=== PATIENT | male | born 1930 | race Caucasian/White ===

== ENCOUNTER → 2017-01-15 | Outpatient (CLI) | payer MEDICARE, OTHER ==
--- NOTE | 2017-01-16 07:54 | RAD ---
Pelvis one view INDICATION: Hip pain IMPRESSION: Mild osteoarthrosis of the hips. Bones are osteopenic. No evidence of fracture or focal destructive lesion. Scattered osteoarthritic changes of the sacroiliac joints. Electronically signed by: Mark Contreras MD 01/16/2017 7:55 AM CDT
--- NOTE | 2017-01-16 07:54 | RAD ---
EXAM DESCRIPTION: Right knee, 4 views CLINICAL HISTORY: KNEE PAIN FINDINGS/ IMPRESSION: Comparison 10/14/2016 Region of lucency medial tibia plateau seen on the prior study. This involves an area spanning roughly 2 x 1.[address] to assess for etiology No fracture. No periprosthetic fracture or osteolysis femoral component. No fracture of the patella. Moderate suprapatellar joint effusion Electronically signed by: Andre Hawk MD 01/16/2017 7:54 AM CDT
== END ==
LOC: RAD 08:00
PROVIDERS: ATTEND Orthopaedic Surgery
DX: M25.561 Pain in right knee (principal); M16.0 Bilateral primary osteoarthritis of hip; M85.88 Other specified disorders of bone density and structure, other site; M25.551 Pain in right hip

== ENCOUNTER → 2017-01-21 | Outpatient (CLI) | payer MEDICARE, OTHER | LOC: LAB.O 08:13 | PROVIDERS: ATTEND Orthopaedic Surgery | DX: M17.11 Unilateral primary osteoarthritis, right knee (principal); M25.461 Effusion, right knee ==

== ENCOUNTER → 2017-01-22 | Outpatient (CLI) | payer MEDICARE, OTHER ==
--- NOTE | 2017-01-22 15:02 | NM ---
EXAM DESCRIPTION: Bone Scan, 3Phase CLINICAL HISTORY: 86 years Male, RT KNEE OSTEOARTHRITIS COMPARISON: None. TECHNIQUE: A three phase bone scan with attention to the knees was performed in this patient with right knee osteoarthritis using utilizing 28 mCi of technetium MDP FINDINGS: The flow study is symmetric and normal in appearance. The blood pool image demonstrates a photopenic area in the right knee consistent with the knee replacement. Intense uptake of the isotope on the blood pool imaging to suggest soft tissue infection is not apparent. Delayed imaging demonstrates mildly increased activity involving the left knee in the region of the fibular head that is nonspecific. There is modest activity at the margins of the prosthesis on both the tibial and femoral side of the right knee replacement that intense activity to suggest loosening or osteomyelitis is not apparent. IMPRESSION: 1. Abnormal right knee consistent with total knee replacement with essentially normal flow and blood pool imaging and mildly increased activity at the margins of the prosthesis consistent with normal reactive changes postprostatectomy replacement. 2. A pattern to suggest acute osteomyelitis or infection or a focal area of intense activity to suggest a localized loosening of the prosthesis is not apparent. Electronically signed by: Andre Soni MD 01/22/2017 3:02 PM CDT
== END | disposition home or self-care (01) ==
LOC: NM 07:18
PROVIDERS: ATTEND Orthopaedic Surgery
DX: M17.11 Unilateral primary osteoarthritis, right knee (principal)
CPT/HCPCS: 78315; A9503

== ENCOUNTER → 2017-04-20 | Outpatient (CLI) | payer MEDICARE, OTHER | END | disposition home or self-care (01) | LOC: RESP 09:42 | PROVIDERS: ATTEND Orthopaedic Surgery | DX: Z01.818 Encounter for other preprocedural examination (principal); R30.0 Dysuria ==

== ENCOUNTER 2017-05-01 05:04 | Inpatient (IN) | payer MEDICARE, OTHER ==
--- NOTE | 2017-04-30 15:33 | HP ---
CHIEF COMPLAINT: Right knee pain. HISTORY OF PRESENT ILLNESS: Mr. Paz is an 86 year-old male with a history of total knee replacement done about 7 years ago. Mr. Paz had a relatively uneventful recovery, however, has had some knee pain of late. He has been evaluated for both infection and loosening, however there has been no evidence of either. Evidence on x-ray exists of unequal wearing of the polyethylene. Because of that, I did send them for a second opinion to Dr. Ríos. Dr. Ríos was in agreement that the polyethylene showed advanced wear predominantly along the medial aspect. Because of that and the lack of findings consistent with loosening or infection, we talked about options. At this point, the plan is for polyethylene exchange. We did discuss the risks, benefits, and alternatives to this and more specifically the fact that despite all of his negative labs there still could be issues associated with both loosening or infection. After discussing these things, he has given informed consent for polyethylene exchange and the possibility of having a full revision. PAST SURGICAL HISTORY: 1. Open reduction and internal fixation as above. 2. Rotator cuff repair. 3. Knee replacement. 4. Contralateral rotator cuff repair. CURRENT MEDICATIONS: 1. Fish oil. 2. Saw [place]. 3. Multivitamins. 4. Prilosec. ALLERGIES: NO KNOWN DRUG ALLERGIES. CODE STATUS: FULL CODE. IMMUNIZATIONS: Up to date. FAMILY HISTORY: None pertinent to today's complaints. SOCIAL HISTORY: He does not use illicit drugs or smoke, but he does drink on occasion. REVIEW OF SYSTEMS: Negative except as indicated in the History of Present Illness. PHYSICAL EXAMINATION: VITAL SIGNS: Blood pressure 118/70, pulse 74, weight about 210. MENTAL STATUS: The patient is awake, alert, and is able to give a good history and participate in the physical. The patient is oriented to person, place and time. SKIN: Normal tone and turgor. HEENT: Normocephalic, atraumatic. Pupils equal, round and reactive. Mucosal membranes are moist. NECK: Normal range of motion. No thyromegaly, no lymphadenopathy. CHEST: Normal respiratory excursion. CARDIAC: Regular rate and rhythm. No murmurs, rubs or gallops. MUSCULOSKELETAL: Bilateral upper extremities show full active range of motion without significant pain. He has no deformity. They are warm and well perfused. Strength is 5/5. The left lower extremity shows full range of motion in the hip and knee without significant pain. There is no deformity. There is no instability. Strength is 5/5 and sensation is intact. The right lower extremity shows a well-healed wound anteriorly. He has full range of motion in the hip. He has full extension with flexion to about 120 degrees. Sensation is intact throughout. He has no varus, valgus, anterior or posterior laxity. He has no evidence of instability. He does have diffuse tenderness throughout the knee but no effusion. No erythema. No increased warmth and no soft tissue swelling. ASSESSMENT: 1. Excess polyethylene wear with knee pain. PLAN: The plan at this point is for polyethylene exchange. We have discussed the risks, benefits, and alternatives to that in addition to the fact that there may be more extensive surgical intervention needed at the time of polyethylene exchange. After discussing the risks, benefits, and alternatives to this, he has given informed consent for it. [facility][id number] [facility]
[2017-05-01] MEDS ORDERED: LACTATED RINGERS 1,000 ML ONE (05:35)
[2017-05-01] MEDS ORDERED: SODIUM CHL 0.9% 100ML MINI-BAG 100 ML IVPB ONE (05:35)
[2017-05-01] MEDS ORDERED: VANCOMYCIN HCL INJ 1,000 MG VIAL IVPB ONE ×5 (05:36→19:42)
[2017-05-01] MEDS ORDERED: ceFAZolin SODIUM 1 GM VIAL ONE ×3 (05:36→08:40)
[2017-05-01] MEDS ORDERED: SODIUM CHLORIDE 0.9% 250ML 250 ML ONE ×3 (05:37→19:41)
[2017-05-01] MEDS ORDERED: TRANEXAMIC ACID 1,000 MG/10 ML VIAL ONE ×2 (05:37→05:38)
[2017-05-01] MEDS ORDERED: SODIUM CHLORIDE 0.9% 100ML 100 ML IVPB ONE (05:38)
[2017-05-01] MEDS ORDERED: MIDAZOLAM INJ 5 MG/5 ML VIAL ONE (06:30)
[2017-05-01] MEDS ORDERED: fentaNYL CITRATE INJ 50 MCG/ML AMP ONE (06:30)
[2017-05-01] MEDS ORDERED: MORPHINE SULFATE *EPIDURAL* 0.5 MG/ML VIAL ONE (06:30)
[2017-05-01] MEDS ORDERED: ACETAMINOPHEN IV 1000MG 100 ML ONE (06:30)
[2017-05-01] MEDS ORDERED: DEXAMETHASONE INJ 10 MG/ML VIAL ONE (09:00)
[2017-05-01] MEDS ORDERED: SODIUM CHLORIDE 0.9% 50 ML VIAL ONE (09:00)
[2017-05-01] MEDS ORDERED: PROPOFOL 200 MG/20 ML VIAL IV ONE (09:00)
[2017-05-01] MEDS ORDERED: raNITIdine HCL INJ 25 MG/ML VIAL ONE (09:00)
[2017-05-01] MEDS ORDERED: ePHEDrine SULF 50 MG/ML ONE (09:00)
[2017-05-01] MEDS ORDERED: LIDOCAINE 1% 10 ML VIAL INJ ONE (09:00)
[2017-05-01] MEDS ORDERED: MORPHINE PCA 1 MG/ML 100 ML BAG IVPB ONE (09:10)
[2017-05-01] MEDS ORDERED: MAGNESIUM HYDROXIDE 30 ML UD PO PRN (09:37)
[2017-05-01] MEDS ORDERED: PROMETHAZINE HCL INJ 12.5 MG in SODIUM CHLORIDE 0.9% 50ML 50 ML IVPB PRN (09:37)
[2017-05-01] MEDS ORDERED: BISACODYL SUPPOSITORY 10 MG PR PRN (09:37)
[2017-05-01] MEDS ORDERED: ACETAMINOPHEN 500 MG TAB PO PRN (09:37)
[2017-05-01] MEDS ORDERED: SODIUM CHLORIDE 0.9% (FLUSH) 10 ML SYG IV PRN (09:37)
[2017-05-01] MEDS ORDERED: ALUMINUM & MAGNESIUM HYDROXIDE 30 ML UD PO PRN (09:37)
[2017-05-01] MEDS ORDERED: MORPHINE SULFATE INJ 10 MG/ML VIAL IM PRN (09:37)
[2017-05-01] MEDS ORDERED: CYCLOBENZAPRINE HCL 10 MG TAB PO PRN (09:37)
[2017-05-01] MEDS ORDERED: ZOLPIDEM TARTRATE 5 MG TAB PO PRN (09:37)
[2017-05-01] MEDS ORDERED: BENZOCAINE-MENTH LOZ (CEPACOL) 1 EA LOZ MT PRN (09:37)
[2017-05-01] MEDS ORDERED: TEMAZEPAM 15 MG CAP PO PRN (09:37)
[2017-05-01] MEDS ORDERED: traMADol HCL 50 MG TAB PO PRN (09:37)
[2017-05-01] MEDS ORDERED: MORPHINE SULFATE INJ 10 MG/ML VIAL IV PRN (09:37)
[2017-05-01] MEDS ORDERED: PROMETHAZINE HCL INJ 25 MG in SODIUM CHLORIDE 0.9% 50ML 50 ML IVPB PRN (09:37)
[2017-05-01] MEDS ORDERED: NALOXONE HCL INJ 0.4 MG/ML VIAL IV PRN (09:37)
[2017-05-01] MEDS ORDERED: ACETAMINOPHEN 325 MG TAB PO PRN (09:37)
[2017-05-01] MEDS ORDERED: TRANEXAMIC ACID INJ 1,000 MG in SODIUM CHLORIDE 0.9% 100ML 100 ML IVPB ONE (09:37)
[2017-05-01] MEDS ORDERED: DEX 5% W/NACL 0.45% 1000ML 1,000 ML IVS PRN (09:37)
[2017-05-01] MEDS ORDERED: MORPHINE PCA 1 MG/ML 100ML 1 BAG in PREMIX BAG 1 BAG IVPB SCH (10:00)
--- NOTE | 2017-05-01 10:57 | OP ---
DATE OF PROCEDURE: 05/01/17 PREOPERATIVE DIAGNOSIS: 1. Failed right total knee. POSTOPERATIVE DIAGNOSIS: 1. Failed right total knee. PROCEDURE: 1. Polyethylene exchange. 2. Debridement. SURGEON: Santhosh Tellez MD. BAGGAGE SECURITY CHECKER: Jaden Bledsoe CST, SA-C. ANESTHESIA: General anesthesia. COMPLICATIONS: None. FINDINGS: There was excessive wear on the medial aspect of the polyethylene. There was exuberant scar formation. There was no purulence and very small amount of clear, yellow fluid. That fluid was sent during surgery and there were no white blood cells identified in the fluid. INDICATION: Mr. Paz is an 86-year-old male with a history of knee replacement that was done about 7 years ago. He did relatively well from that initially. He has been slowly developing discomfort and he was fully evaluated for both loosening and infection. There was no evidence of either issue and I did send him for a second opinion. Dr. Jose Ríos was in agreement that he would likely benefit from polyethylene exchange and any other decisions could be made intraoperatively if there was evidence of infection or loosening on gross examination. After discussing the risks, benefits and alternatives to operative therapy with him, informed consent was obtained. PROCEDURE: The patient was brought to the Operating Room land placed in the supine position. General anesthesia was induced and the patient's leg was sterilely prepped and draped. Following prepping and draping, an incision was made in line with his previous incision. Standard medial parapatellar approach was used and all the remaining old suture was removed. Following that, pretty extensive resection of scar tissue and synovium was removed. There were synovial tissue samples sent for evaluation in pathology. Once extensive scar removal had been performed, the knee was hyperflexed and the polyethylene was removed. Continued debridement was performed. The knee was very thoroughly irrigated and following that, both the femoral and tibial components were checked and firm pressure was placed on both and there was no evidence of gross motion whatsoever. Given that and the lack of findings that may be consistent with infection, the intended procedure for polyethylene exchange was performed. He had had just a little bit of difficulty with terminal extension with the 10 mm polyethylene. As such, I did elect to put in a 9 mm polyethylene. The trial was put in, the knee was extended and flexed and was found to be stable in all planes including varus/valgus and anterior/posterior. Following application of the polyethylene, the trial was removed and the knee was again thoroughly irrigated and the final component was impacted. The knee was irrigated. The knee was taken through a range of motion and the patella tracked well and the knee was stable. Following irrigation, the wound was reapproximated in layers with reapproximation of the medial parapatellar tissues with PDS. The skin was closed with a combination of running and interrupted subcuticular stitches. Sterile dressings were placed. The patient was awoken from anesthesia and taken to Recovery. POSTOPERATIVE INSTRUCTIONS: He will be weight-bearing as tolerated on postoperative day 1. We will progress his CPM as tolerated. #[id number] [facility]
[2017-05-01] MEDS: ONDANSETRON INJ 4 MG/2 ML VIAL IV PRN ×2 (11:33→16:50)
[2017-05-01] MEDS: IV SET AND CAP CHANGE INJ INJ SCH (12:25)
[2017-05-01] MEDS ORDERED: CEFAZOLIN SODIUM 2 GRAMS IV 50 ML IVPB ONE ×2 (15:19→19:42)
[2017-05-01] MEDS: CELECOXIB 100 MG CAP PO SCH (16:25)
[2017-05-01] MEDS: CEFAZOLIN SODIUM 2 GRAMS IV 2 GM in PREMIX BAG 1 BAG IVPB SCH (16:26)
[2017-05-01] MEDS: VANCOMYCIN HCL INJ 1,000 MG in SODIUM CHLORIDE 0.9% 250ML 250 ML IVPB SCH (17:30)
--- NOTE | 2017-05-01 18:46 | PCM.CORE ---
Physician DVT/VTE - Prophylaxis Currently: Patient already on anticoagulation therapy - Nurse DVT Assessment & Total Each Risk Factor Represents 5 Points: Elective Arthtroplasty Each Risk Factor Represents 3 Points: Age over 75 years DVT Assessment Score: 8
--- NOTE | 2017-05-01 19:39 | CONS ---
DATE OF CONSULTATION: 05/01/17 HISTORY OF PRESENT ILLNESS: This 86 year-old white male was admitted for elective surgical procedures earlier today performed by Dr. Santhosh Tellez, orthopedic surgeon. He apparently had a total arthroplastic replacement of his right knee about 7 years ago. For the last 5 years, he has been having increasing pain and has had to wear an elastic brace around his right knee, especially when he is dancing with his . Pain has gotten progressively worse to the point of intolerance and failed to respond to conservative outpatient therapy, and required surgical intervention to assist with symptom control. Apparently the plastic surface of the knee prosthesis had deteriorated to the point where significant tissue injury was being done and restrictive range of motion was resultant with pain. This was remedied earlier today when the old polyethylene surfaces on the prosthesis were exchanged. The patient tolerated the procedure quite well. The patient is now seen postoperative. He is fully awake and alert. He is requiring some morphine TIE SAWYER analgesia and his family is also present to assist with his ongoing care. He will be started on specific rehabilitation in the morning to get him to the point where he will safely be able to return home hopefully with improved functioning and less pain in the right knee. PAST MEDICAL HISTORY: 1. Stroke in December of 2015 which he has shown some continued rehabilitation and return of function, though residual is noted on the left side. PAST SURGICAL HISTORY: 1. Right knee on 2 occasions with the most recent one earlier today. 2. Both surgery repair on rotator cuffs of shoulders. 3. Left leg fracture in 1998 when a horse rolled over on him. CURRENT MEDICATIONS: Please refer to list provided by the nurses for an up to date list of verified home medications. ALLERGIES: HYDROCODONE. FAMILY HISTORY: Negative. 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 He stopped using cigar and tobacco products in 1973 and required hypnosis to assist him with that decision. REVIEW OF SYSTEMS: No significant weight change, fever or chills. HEENT: No hearing or vision disturbances. LUNGS: No significant shortness of breath or cough. CARDIOVASCULAR: No chest pains or palpitations. ABDOMEN: No nausea, vomiting, diarrhea or blood in the stools. EXTREMITIES: Pain in the right knee especially noted and surgery scheduled and completed earlier today. NEUROLOGIC: History of CVA in December of last year with some left upper extremity residual. PHYSICAL EXAMINATION: VITAL SIGNS: Afebrile, pulse 60, blood pressure 126/77, pulse oximetry 94% nasal cannula. HEENT: Within normal limits. Slightly pale conjunctiva evident. CHEST: Lungs are generally clear. HEART: Tones regular though somewhat distant. ABDOMEN: Soft with no organomegaly, masses or tenderness. Slight constipation noted periodically but not presently. Last bowel movement was yesterday. EXTREMITIES: Right knee is in a bulky postoperative dressing with no drainage on it. He has gone up to 90 degrees on his first day of CPM. He continues with rehabilitation to his left arm with active and passive range of motion, and will have the therapist make some suggestions as well. NEUROLOGIC: No focal neurological deficits. The patient is awake, alert and oriented and communicative. Preoperative laboratory studies are present in the old chart not available to us at this time and pathology reports are sent to the lab, especially to rule out any type of an underlying infectious condition in the joint with results pending. ASSESSMENT: 1. Postoperative day zero removal and replacement of the polyethylene linings of the previously performed total right knee arthroplasty prosthesis successfully performed by Dr. Tellez earlier this morning. 2. Chronic osteoarthritis with failure of the previous total knee prosthesis requiring repeat procedures to assist with symptom control. 3. History of arthritis especially involving the shoulders with some decreased range of motion. 4. History of cerebrovascular accident approximately 1-1/3 year ago involving the left upper extremity especially. PLAN: The patient will be continued on physical therapy and orthopedically supervised rehabilitation. He will continue until he is able to safely return home where his rehab will continue, especially involving his knee postoperatively as well as his how post CVA involving the left upper extremity especially. Continue with DVT prophylaxis with special attention to breathing deeply to prevent atelectasis and to actively contract and relax muscles of the lower extremity. Reevaluate in the morning. [facility][id number] [facility]
[2017-05-01] MEDS ORDERED: DOCUSATE CALCIUM 240 MG CAP ONE (19:41)
[2017-05-01] MEDS ORDERED: ENOXAPARIN SODIUM 30 MG/0.3 ML SYG SUBCU ONE (19:41)
[2017-05-01] MEDS: DOCUSATE CALCIUM 240 MG CAP PO SCH (20:47)
[2017-05-01] MEDS: ENOXAPARIN SODIUM 30 MG/0.3 ML SYG SUBCU SCH (22:21)
[2017-05-02] MEDS: CEFAZOLIN SODIUM 2 GRAMS IV 2 GM in PREMIX BAG 1 BAG IVPB SCH ×2 (00:01→08:29)
[2017-05-02] MEDS: VANCOMYCIN HCL INJ 1,000 MG in SODIUM CHLORIDE 0.9% 250ML 250 ML IVPB SCH (05:17)
[2017-05-02] MEDS ORDERED: CEFAZOLIN SODIUM 2 GRAMS IV 50 ML IVPB ONE (08:07)
[2017-05-02] MEDS: ENOXAPARIN SODIUM 30 MG/0.3 ML SYG SUBCU SCH ×2 (08:28→22:22)
[2017-05-02] MEDS: CELECOXIB 100 MG CAP PO SCH ×2 (08:28→16:14)
[2017-05-02] MEDS: MAGNESIUM OXIDE 400 MG TAB PO SCH (08:28)
--- NOTE | 2017-05-02 12:49 | PN ---
DATE: 05/02/17 SUBJECTIVE: He is doing really well. He states he has no pain whatsoever. He has been up and walking already today. OBJECTIVE: He is afebrile. Vital signs are stable. Dressing is clean, dry and intact. ASSESSMENT: 1. Status post total knee arthroplasty. PLAN: The plan at this point is for him to continue on with his weightbearing as tolerated as well as continue on with progressing his CPM. [facility][id number] [facility]
--- NOTE | 2017-05-02 20:30 | PN ---
DATE: 05/02/17 SUBJECTIVE: The patient has been very active, walking up and down the halls. He has complained of some pain but has not required the [employer] pump much today at all. He is alert. No bowel movement today. If none by tomorrow, he will remind the nurses to take a dose of Milk of Magnesia as possible. Again encouraged to breathe deep and to active contract his lower extremities which he is actively doing with good family support. OBJECTIVE: Afebrile, pulse 71, blood pressure 124/70, pulse oximetry 98% on room air. Repeat hemoglobin is stable at 14.1. Initial culture of the right knee body fluid culture shows no growth at 24 hours. No drainage at the site of the incision. ABDOMEN: Soft. LUNGS: Clear. HEART: Tones regular. ASSESSMENT: 1. Postoperative day #1 revision with removal and replacement of the polyethylene linings of the previously performed total right knee arthroplasty prosthesis which had originally been placed about 7 years ago with current procedure performed by Dr. Tellez yesterday morning. 2. Chronic osteoarthritis with failure of the previous total knee arthroplasty on the right requiring surgical intervention and revision of the plastic polyethylene lining to assist with symptom control. 3. History of arthritis especially involving the shoulders with some decreased range of motion after rotator cuff repair in the past. 4. History of cerebrovascular accident approximately 16 months ago involving the left upper extremity. PLAN: The patient is continuing with physical therapy rehabilitation and showing good progress. Progress will be continued until he is safely able to return home and care for himself with his family's assistance. Reevaluation in the morning. #[id number] [facility]
[2017-05-02] MEDS: DOCUSATE CALCIUM 240 MG CAP PO SCH (20:34)
--- NOTE | 2017-05-03 06:11 | RAD ---
Procedure: XR KNEE 1-2 VIEWS Exam Date: 05/01/2017 9:41 AM CDT Ordering Provider: SHAINA FRANK Clinical Indication: Recent TKA Comparison: None Findings: Status post recent right total knee arthroplasty with expected postoperative subcutaneous gas in the joint space. No evidence of complication. No periprosthetic fracture or dislocation. Subcutaneous soft tissues are otherwise unremarkable. Impression: Status post recent TKA with patellar resurfacing in expected postoperative gas in the joint space. Otherwise, nonacute right knee series. Electronically signed by: Obdulio Mae MD 05/03/2017 6:10 AM CDT
[2017-05-03] MEDS: MAGNESIUM OXIDE 400 MG TAB PO SCH (08:33)
[2017-05-03] MEDS: CELECOXIB 100 MG CAP PO SCH ×2 (08:33→17:56)
[2017-05-03] MEDS: ENOXAPARIN SODIUM 30 MG/0.3 ML SYG SUBCU SCH ×3 (08:34→21:35)
[2017-05-03] MEDS: SODIUM CHLORIDE 0.9% (FLUSH) 10 ML SYG IV SCH ×2 (09:34→20:26)
--- NOTE | 2017-05-03 13:16 | PN ---
DATE: 05/03/17 SUBJECTIVE: He states he is not having any pain at all. He has been up out of bed walking but only to the hallway twice today. OBJECTIVE: He is afebrile. Vital signs are stable. Wound is clean. There are no signs or symptoms of infection. ASSESSMENT: 1. Status post revision of total knee arthroplasty. PLAN: The plan at this point is to continue on with therapy. He seems to be functioning really well, however at this point he is requiring mild assistance. Once he is independent, we will discharge him. #[id number] [facility]
--- NOTE | 2017-05-03 20:11 | PN ---
DATE: 05/03/17 SUPERVISING PHYSICIAN: Juan Kelly M.D. SUBJECTIVE: The patient continues to ambulate today with Physical Therapy. He is doing well. He has had good pain control. His [employer] pump was stopped. He is adamant that he does not need anything for bowel movements today as he feels like he is able to probably have one later today. If not, he said he would take Milk of Magnesia in the morning. He continues to be encouraged to do deep breathing exercises. OBJECTIVE: VITAL SIGNS: T max 98.4, pulse 68, blood pressure 108/59, respirations 18, satting 97% on room air. I's and O's show a negative balance of 1135 with 940 in, 2075 out. Weight is 93.6 kg. CHEST: Lungs are clear to auscultation. HEART: Regular rate and rhythm. ABDOMEN: Soft, non-tender with positive bowel sounds. EXTREMITIES: Right knee has a dressing in place. There is minimal swelling. No redness. No signs of infection. Pulses distally are strong. Capillary refill is brisk. ASSESSMENT: 1. Postoperative day #2 revision with removal and replacement of the polyethylene linings of the previously performed total right knee arthroplasty which had originally been placed 7 years previously with current procedure being performed by Dr. Santhosh Tellez. 2. Chronic osteoarthritis with failure of the previous total knee arthroplasty on the right requiring surgical intervention and revision of the plastic polyethylene lining to assist with symptom control. 3. History of arthritis especially involving the shoulders with some decreased range of motion after rotator cuff repair in the past. 4. History of cerebrovascular accident approximately 16 months previously involving the left upper extremity. PLAN: We will continue to follow the patient as he progresses through his physical therapy and rehabilitation efforts. Anticipate discharge in the next 2 to 3 days. Until then, will continue to follow the patient closely and treat appropriately. #[id number] [facility]
[2017-05-03] MEDS: DOCUSATE CALCIUM 240 MG CAP PO SCH (20:26)
[2017-05-04] MEDS: CELECOXIB 100 MG CAP PO SCH (08:41)
[2017-05-04] MEDS: MAGNESIUM OXIDE 400 MG TAB PO SCH (08:41)
--- NOTE | 2017-05-04 08:41 | PN ---
DATE: 05/04/17 SUBJECTIVE: Mr. Paz is doing really well. He says he still has no pain at all. OBJECTIVE: Afebrile. Vital signs stable. Wound is clean. There are no signs or symptoms of infection. ASSESSMENT: Status post revision total knee arthroplasty. PLAN: He will continue with weight-bearing las tolerated and increasing his CPM. He is up to about 110 degrees on the CPM at this time. [facility][id number] [facility]
[2017-05-04] MEDS: SODIUM CHLORIDE 0.9% (FLUSH) 10 ML SYG IV SCH (08:42)
[2017-05-04] MEDS: ENOXAPARIN SODIUM 30 MG/0.3 ML SYG SUBCU SCH (09:47)
[2017-05-04] MEDS: IV SET AND CAP CHANGE INJ INJ SCH (09:47)
[2017-05-04 10:05] VITALS: BP 108/62; TEMP 97.6; O2SAT 95
[2017-05-04] MEDS ORDERED: BISACODYL SUPPOSITORY 10 MG PR ONE (21:00)
[2017-05-04] MEDS ORDERED: MAGNESIUM HYDROXIDE 30 ML UD PO ONE (21:00)
--- NOTE | 2017-05-13 16:07 | DS ---
SUPERVISING PHYSICIAN: Andre West MD DISCHARGE DIAGNOSIS: 1. Postoperative day #3 for revision removal and replacement of the polyethylene lining to the previously performed total knee arthroplasty which had been placed 7 years previously with current procedure being performed by Dr. Santhosh Tellez and patient requiring ongoing physical therapy and rehabilitation for significant deconditioning to Swing Bed to insure patient's safety once discharged. 2. Chronic osteoarthritis having previous total knee arthroplasty to the right requiring surgical intervention as noted in #1. 3. History of arthritis especially affecting the shoulders with some decreased range of motion having total rotator cuff repair.. 4. History of previous cerebrovascular accidents approximately 16 months previously involving the left upper extremity with some residual effect. HISTORY OF PRESENT ILLNESS: Jackson Sanchez is an 86 year-old male patient who was admitted on 05/01/17 for elective surgical procedure for revision of a total knee that had been completed 7 years previous and reported for the last 5 years he has been having some increase in pain and was having to wear a brace around the knee, especially when he was dancing with his . His pain had gotten progressively worse to the point of intolerance and he failed to respond to any conservative measures and treatments in outpatient setting. The patient requests surgical intervention to assist with symptom control. Apparently the plastic surface of the knee prosthesis had deteriorated to the point where significant tissue injury was being done and restrictive range of motion was resultant pain. He had revision of old polyethylene surfaces plus prosthesis that was exchanged on 05/01/17 and was performed by Dr. Santhosh Tellez. He tolerated the procedure well and was seen postoperatively and followed through the acute care admission. He did well with the physical therapy but it had been determined that he was in need of some additional assistance given that he had some left-sided weakness from previous cerebrovascular accident. Thus, he was admitted to Swing Bed for ongoing strengthening and rehabilitation. LABORATORY: Postoperative hemoglobin 14.1 and hematocrit 42.6. Urinalysis was all within normal limits. He had a synovial total cell count that was sent to [facility] as well as pathology and per pathology report, final tissue diagnosis was soft tissue synovial medial gutter right knee excision. Benign fibrotic connective tissue with mild synovial hyperplasia, no significant acute inflammation. Please refer to that final report for details. Cell count on fluid was noted straw, hazy in appearance. There were 123 lymphocytic cells, 8% were neutrophils, 79% were lymphocytes, 10% were monocytic macrophase with 3 eosinophils, 0 basophils and synoviocytes. HOSPITAL COURSE: Mr. Paz was admitted on 04/30/17 as noted for revision of his knee. He did well but continued to have need for strengthening due to left- sided weakness from a previous cerebrovascular accident and thus he was admitted to Swing Bed. PLAN: The patient was discharged on Acute Care from to be readmitted to Swing Bed for ongoing physical therapy and rehabilitation efforts. Home medications were resumed as previous as well as patient started on Xarelto. Diet as as tolerated, regular diet. Physical therapy was per physical therapy department. CONDITION AT DISCHARGE: Stable and improved. [facility][id number] [facility]
== END 2017-05-04 10:10 | disposition swing bed (61) | DRG 464 ==
LOC: AMB 05:04 → MS 11:05
PROVIDERS: ADMIT Orthopaedic Surgery; ATTEND Nurse Practitioner Family
PROC: 0SUC09C Supplement Right Knee Joint with Liner, Patellar Surface, Open Approach (ICD-10-PCS; 2017-05-01)
PROC: 0SPC09Z Removal of Liner from Right Knee Joint, Open Approach (ICD-10-PCS; 2017-05-01)
PROC: 0SPC0JC Removal of Synthetic Substitute from Right Knee Joint, Patellar Surface, Open Approach (ICD-10-PCS; principal; 2017-05-01 07:00)
DX: T84.89XA Other specified complication of internal orthopedic prosthetic devices, implants and grafts, initial encounter (principal); I69.354 Hemiplegia and hemiparesis following cerebral infarction affecting left non-dominant side; M17.11 Unilateral primary osteoarthritis, right knee; K21.9 Gastro-esophageal reflux disease without esophagitis; Z79.82 Long term (current) use of aspirin; Z79.899 Other long term (current) drug therapy

== ENCOUNTER 2017-05-04 10:10 | Inpatient (IN) | payer MEDICARE, OTHER ==
[2017-05-04] MEDS ORDERED: TEMAZEPAM 15 MG CAP PO PRN (11:11)
[2017-05-04] MEDS ORDERED: ACETAMINOPHEN 500 MG TAB PO PRN (11:11)
[2017-05-04] MEDS ORDERED: SODIUM PHOS/BIPHOS ENEMA ADULT 133 ML BTTL PR PRN (11:11)
[2017-05-04] MEDS ORDERED: CYCLOBENZAPRINE HCL 10 MG TAB PO PRN (11:16)
--- NOTE | 2017-05-04 11:19 | PCM.CORE ---
Physician DVT/VTE - Prophylaxis Currently: Patient already on anticoagulation therapy - xarelto - Nurse DVT Assessment & Total Each Risk Factor Represents 5 Points: Elective Arthtroplasty Each Risk Factor Represents 3 Points: Age over 75 years Each Risk Factor Represents 1 Point: Hx Major Surgery <1month Each Risk Factor is 1 Point: Obesity (BMI >25) DVT Assessment Score: 10 - 5 or more Very High Risk Treatments: Early Ambulation *, Sequential Compression Device
[2017-05-04] MEDS: MAGNESIUM HYDROXIDE 30 ML UD PO PRN (12:21)
[2017-05-04] MEDS: OMEPRAZOLE CAP 20 MG CAP PO SCH (12:22)
[2017-05-04] MEDS: CYANOCOBALAMIN 1,000 MCG TAB PO SCH (17:45)
[2017-05-04] MEDS: PRAVASTATIN SODIUM 20 MG TAB PO SCH (17:45)
[2017-05-04] MEDS: CHOLECALCIFEROL 2,000 IU TAB PO SCH (17:45)
--- NOTE | 2017-05-04 22:45 | HP ---
SUPERVISING PHYSICIAN: Andre West M.D. HISTORY OF PRESENT ILLNESS: Mr. Paz is an 86 year-old male patient that was admitted on 05/01/17 for an elective surgical procedure for a revision of a total knee that was completed 7 years previously. For the last 5 years, he has been having some increasing pain and he was having to wear a brace around his right knee especially when he was dancing with his . His pain had gotten progressively worse to the point of intolerance and he failed to respond to any conservative outpatient treatment, and requested surgical intervention to assist with symptom control. Apparently his plastic surface of the knee prosthesis had deteriorated to the point where significant tissue injury was being done and restricting his range of motion, and resultant pain. He had a revision of the old polyethylene surface of the prosthesis that was exchanged on 05/01/17 that was performed by Dr. Santhosh Tellez. He tolerated the procedure well and was seen postoperatively, and followed through his Acute Care admission. He did well with his physical therapy but it was determined that he was in need of additional assistance given that he had some left sided weakness from a previous cerebrovascular accident. He is now going to be admitted to [facility] for ongoing strengthening and rehabilitation. PAST MEDICAL HISTORY: 1. Stroke in December 2015 with some residual left sided effects. PAST SURGICAL HISTORY: 1. Right knee replacement on 2 previous occasions, including current revision on 05/01/17. 2. Bilateral rotator cuff repairs. 3. Left leg fracture in 1998 secondary to horse rolling on him. CURRENT MEDICATIONS: Please refer to list provided by the nurses for an updated list of home medications that were verified. ALLERGIES: HYDROCODONE. FAMILY HISTORY: Negative. 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 He stopped using cigar or tobacco products in 1973. Denies any alcohol or illicit drug use. PHYSICAL EXAMINATION: VITAL SIGNS: Temperature 98.7, pulse 96, blood pressure 132/74, respirations 18 , satting 96% on room air. Admission weight 91.6 kg. GENERAL: The patient is resting after finishing physical therapy. He appears to be comfortable in no distress. He is alert and oriented. HEENT: Tympanic membranes are clear bilaterally. Oropharynx is pink and moist without any lesions. NECK: Supple, non-tender with full range of motion. No jugular venous distention is noted. CHEST: Clear to auscultation bilaterally without any rhonchi, wheezing or rales. CARDIOVASCULAR: Regular rate and rhythm without appreciable murmurs, gallops, or rubs. ABDOMEN: Soft, non-tender with positive bowel sounds. EXTREMITIES: Right knee has a dressing in place with minimal swelling and redness. No signs of infection. Pulses distally are strong. Capillary refill was brisk. NEUROLOGIC: He is alert and oriented times three. There was some noted left sided drooping of facial features which is chronic from previous CVA as well as some decreased strength compared to the right, more so the upper extremity, again residual effects from previous CVA. LABORATORY: none pending ASSESSMENT: 1. Postoperative day 3 for revision, removal and replacement of polyethylene linings of the previously performed total right knee arthroplasty which had been placed 7 years previous with current procedure being performed by Dr. Santhosh Tellez with the patient requiring ongoing physical therapy and rehabilitation for significant deconditioning to ensure the patient's safety once discharged. 2. Chronic osteoarthritis with having previous total knee arthroplasty on the right requiring surgical intervention as noted in #1. 3. History of arthritis especially affecting the shoulders with some decreased range of motion having bilateral rotator cuff repair. 4. History of cerebrovascular accident approximately 16 months previously involving the left upper extremity with some residual effects. PLAN: The patient was discharged from Acute Care on 05/04/17 and admitted to Swing Bed for continuation of his physical therapy and reconditioning. Will continue his home medications once they have been updated and verified. He will be on Xarelto as per protocol for knee replacement for a total of 12 days with today being day 4. He will have a Physical Therapy consultation. Will continue to follow the patient as he progresses through his Swing Bed rehabilitation efforts. Until discharge, will continue to monitor and treat appropriately. #[id number] [facility]
[2017-05-05] MEDS: OMEPRAZOLE CAP 20 MG CAP PO SCH (06:10)
[2017-05-05] MEDS ORDERED: LORATADINE 10 MG TAB PO ONE (07:58)
[2017-05-05] MEDS ORDERED: ASPIRIN EC 81 MG TAB PO ONE (07:59)
[2017-05-05] MEDS ORDERED: DOCUSATE SODIUM 100 MG CAP ONE (07:59)
[2017-05-05] MEDS ORDERED: RIVAROXABAN 10 MG TAB ONE (07:59)
[2017-05-05] MEDS: DOCUSATE SODIUM 100 MG CAP PO SCH (08:22)
[2017-05-05] MEDS: MAGNESIUM HYDROXIDE 30 ML UD PO PRN (08:22)
[2017-05-05] MEDS: ASPIRIN EC 81 MG TAB PO SCH (08:22)
[2017-05-05] MEDS: LORATADINE 10 MG TAB PO SCH (08:22)
[2017-05-05] MEDS: RIVAROXABAN 10 MG TAB PO SCH (08:22)
[2017-05-05] MEDS ORDERED: RIVAROXABAN 10 MG TAB PO SCH (09:00)
[2017-05-05] MEDS: PRAVASTATIN SODIUM 20 MG TAB PO SCH (17:20)
[2017-05-05] MEDS: CYANOCOBALAMIN 1,000 MCG TAB PO SCH (17:20)
[2017-05-05] MEDS: CHOLECALCIFEROL 2,000 IU TAB PO SCH (17:20)
[2017-05-06] MEDS: OMEPRAZOLE CAP 20 MG CAP PO SCH (05:55)
[2017-05-06] MEDS: RIVAROXABAN 10 MG TAB PO SCH (08:07)
[2017-05-06] MEDS: DOCUSATE SODIUM 100 MG CAP PO SCH (08:07)
[2017-05-06] MEDS: ASPIRIN EC 81 MG TAB PO SCH (08:07)
[2017-05-06] MEDS: LORATADINE 10 MG TAB PO SCH (08:07)
--- NOTE | 2017-05-06 11:01 | PN ---
DATE: 05/06/17 SUBJECTIVE: Mr. Paz is doing really well and walking well. He still requires a little bit of assistance getting out of bed. OBJECTIVE: Afebrile. Vital signs stable. Wound is clean. There are no signs or symptoms of infection. ASSESSMENT: Status post total knee arthroplasty. PLAN: He will continue with his physical therapy. Hopefully he will be discharged in the next couple of days. #[id number] [facility]
[2017-05-06] MEDS: CYANOCOBALAMIN 1,000 MCG TAB PO SCH (17:12)
[2017-05-06] MEDS: CHOLECALCIFEROL 2,000 IU TAB PO SCH (17:12)
[2017-05-06] MEDS: PRAVASTATIN SODIUM 20 MG TAB PO SCH (17:12)
[2017-05-07] MEDS: OMEPRAZOLE CAP 20 MG CAP PO SCH (06:07)
--- NOTE | 2017-05-07 08:16 | PN ---
DATE: 05/07/17 SUBJECTIVE: He is doing really well right now. He has no pain at all. OBJECTIVE: Afebrile. Vital signs stable. Wound is clean. There are no signs or symptoms of infection. ASSESSMENT: Status post revision total knee arthroplasty. PLAN: At this point, he is doing really well. We are going to continue to work with therapy and we hopefully he will be ready for discharge here in the next day or two. [facility][id number] [facility]
[2017-05-07] MEDS: LORATADINE 10 MG TAB PO SCH (09:11)
[2017-05-07] MEDS: DOCUSATE SODIUM 100 MG CAP PO SCH (09:12)
[2017-05-07] MEDS: RIVAROXABAN 10 MG TAB PO SCH (09:12)
[2017-05-07] MEDS: ASPIRIN EC 81 MG TAB PO SCH (09:12)
[2017-05-07] MEDS: CHOLECALCIFEROL 2,000 IU TAB PO SCH (17:43)
[2017-05-07] MEDS: PRAVASTATIN SODIUM 20 MG TAB PO SCH (17:43)
[2017-05-07] MEDS: CYANOCOBALAMIN 1,000 MCG TAB PO SCH (17:43)
--- NOTE | 2017-05-07 18:27 | PN ---
DATE: 05/07/17 SUPERVISING PHYSICIAN: Andre West M.D. SUBJECTIVE: The patient is sitting up on the side of his bed eating his meal. His and daughter are at bedside. He has no complaints of shortness of breath, nausea, vomiting, diarrhea or chest pain. OBJECTIVE: VITAL SIGNS: He is afebrile, heart rate 72, blood pressure 105/66, respiratory rate 18, O2 sat is 95%. RESPIRATORY: Clear to auscultation bilaterally. CARDIOVASCULAR: Regular rate and rhythm. ABDOMEN: Soft, nondistended, non-tender. Bowel sounds are positive. EXTREMITIES: Bilateral pedal pulses are palpable and +2. There is minimal swelling or edema to the right knee. NEUROLOGIC: He is awake, alert and oriented times three with some very slight left sided drooping of his facial feature from a previous CVA. LABORATORY: There are no labs and films to report at this time. ASSESSMENT: 1. Postoperative day 6 for revision, removal and replacement of polyethylene linings of the previously performed total right knee arthroplasty which had been placed 7 years previous with current procedure being performed by Dr. Santhosh Tellez with the patient requiring ongoing physical therapy and rehabilitation for significant deconditioning to ensure the patient's safety once discharged. 2. Chronic osteoarthritis with having previous total knee arthroplasty on the right requiring surgical intervention as noted in #1. 3. History of arthritis especially affecting the shoulders with some decreased range of motion having bilateral rotator cuff repair. 4. History of cerebrovascular accident approximately 16 months previously involving the left upper extremity with some residual effects. PLAN: We will continue present supportive care. He will continue with strengthening and rehab with Physical Therapy. At this point, the anticipated date of discharge is next Thursday. He has been encouraged to do good pulmonary hygiene. We will monitor and followup as necessary. Dr. West is the collaborating physician available for consultation. #[id number] [facility]
[2017-05-08] MEDS: OMEPRAZOLE CAP 20 MG CAP PO SCH (05:42)
[2017-05-08] MEDS: RIVAROXABAN 10 MG TAB PO SCH (09:02)
[2017-05-08] MEDS: DOCUSATE SODIUM 100 MG CAP PO SCH (09:02)
[2017-05-08] MEDS: LORATADINE 10 MG TAB PO SCH (09:02)
[2017-05-08] MEDS: ASPIRIN EC 81 MG TAB PO SCH (09:02)
[2017-05-08] MEDS: CHOLECALCIFEROL 2,000 IU TAB PO SCH (17:28)
[2017-05-08] MEDS: PRAVASTATIN SODIUM 20 MG TAB PO SCH (17:28)
[2017-05-08] MEDS: CYANOCOBALAMIN 1,000 MCG TAB PO SCH (17:28)
[2017-05-09] MEDS: OMEPRAZOLE CAP 20 MG CAP PO SCH (06:38)
[2017-05-09] MEDS: ASPIRIN EC 81 MG TAB PO SCH (09:57)
[2017-05-09] MEDS: LORATADINE 10 MG TAB PO SCH (09:57)
[2017-05-09] MEDS: DOCUSATE SODIUM 100 MG CAP PO SCH (09:57)
[2017-05-09] MEDS: RIVAROXABAN 10 MG TAB PO SCH (09:57)
[2017-05-09] MEDS: PRAVASTATIN SODIUM 20 MG TAB PO SCH (17:55)
[2017-05-09] MEDS: CYANOCOBALAMIN 1,000 MCG TAB PO SCH (17:55)
[2017-05-09] MEDS: CHOLECALCIFEROL 2,000 IU TAB PO SCH (17:55)
[2017-05-10] MEDS: OMEPRAZOLE CAP 20 MG CAP PO SCH (06:15)
[2017-05-10] MEDS: ASPIRIN EC 81 MG TAB PO SCH (10:08)
[2017-05-10] MEDS: RIVAROXABAN 10 MG TAB PO SCH (10:08)
[2017-05-10] MEDS: LORATADINE 10 MG TAB PO SCH (10:08)
[2017-05-10] MEDS: DOCUSATE SODIUM 100 MG CAP PO SCH (10:08)
[2017-05-10] MEDS: CHOLECALCIFEROL 2,000 IU TAB PO SCH (18:14)
[2017-05-10] MEDS: PRAVASTATIN SODIUM 20 MG TAB PO SCH (18:14)
[2017-05-10] MEDS: CYANOCOBALAMIN 1,000 MCG TAB PO SCH (18:14)
[2017-05-11] MEDS: OMEPRAZOLE CAP 20 MG CAP PO SCH (06:06)
[2017-05-11] MEDS: RIVAROXABAN 10 MG TAB PO SCH (08:10)
[2017-05-11] MEDS: LORATADINE 10 MG TAB PO SCH (08:10)
[2017-05-11] MEDS: DOCUSATE SODIUM 100 MG CAP PO SCH (08:11)
[2017-05-11] MEDS: ASPIRIN EC 81 MG TAB PO SCH (08:11)
[2017-05-11 09:50] VITALS: BP 120/66; TEMP 98; O2SAT 98
--- NOTE | 2017-05-14 09:22 | DS ---
SUPERVISING PHYSICIAN: Juan Kelly MD DISCHARGE DIAGNOSIS: 1. Postoperative day 7 for revision, removal and replacement of polyethylene linings of the previously performed total right knee arthroplasty which had been placed 7 years previous with current procedure being performed by Dr. Santhosh Tellez with the patient requiring ongoing physical therapy and rehabilitation for significant deconditioning to ensure the patient's safety once discharged, showing good improvement on Swing Bed admission. 2. Chronic osteoarthritis with having previous total knee arthroplasty on the right requiring surgical intervention to replace hardware as noted in #1. 3. History of arthritis especially affecting the shoulders with some decreased range of motion having bilateral rotator cuff repair. 4. History of cerebrovascular accident approximately 16 months previously involving the left upper extremity with some residual effects. HISTORY OF PRESENT ILLNESS: Mr. Paz is an 86-year-old male patient that was admitted on 05/01/17 for an elective surgical procedure for a revision of a total knee that was completed 7 years previously. For the last 5 years, he has been having some increasing pain and he was having to wear a brace around his right knee especially when he was dancing with his . His pain had gotten progressively worse to the point of intolerance and he failed to respond to any conservative outpatient treatment, and requested surgical intervention to assist with symptom control. Apparently his plastic surface of the knee prosthesis had deteriorated to the point where significant tissue injury was being done and restricting his range of motion, resulting in pain. He had a revision of the old polyethylene surface of the prosthesis that was exchanged on 05/01/17 that was performed by Dr. Santhosh Tellez in Acute Care setting. He tolerated the procedure well and was seen postoperatively and followed through his Acute Care admission. He did well with his physical therapy, but it was determined that he was in need of additional assistance given that he had some left sided weakness from a previous cerebrovascular accident. He was admitted to Swing Bed for ongoing strengthening and rehabilitation. LABORATORY: No additional laboratory studies were completed on Swing Bed. RADIOLOGY: No additional radiographic studies were completed on Swing Bed. HOSPITAL COURSE: Mr. Paz was admitted to Swing Bed as noted above. He did well with physical therapy and as felt well enough to be discharged on date of discharge to continue with physical therapy in the outpatient setting. PLAN: Mr. Paz was discharged on 05/11/17 to have close clinical followup with Dr. Tellez as scheduled on 05/22/17 at 10 AM. [facility] He was to resume home medications as instructed and return to the hospital should he have any concerning symptoms. DISCHARGE DIET: Regular diet as tolerated. ACTIVITY: As per physical therapy with a walker. DISCHARGE MEDICATIONS: 1. Flexeril 10 mg every 8 hours as needed for spasm, #15. 2. Ultracet as needed. 3. Xarelto 10 mg daily for additional 24 hours. 4. Other medications to resume as previous. CONDITION AT DISCHARGE: Stable and improved. #[id number] [facility]
== END 2017-05-11 11:50 | disposition home or self-care (01) | DRG 560 ==
LOC: MS 10:10
PROVIDERS: ADMIT Nurse Practitioner Acute Care; ATTEND Nurse Practitioner Family
DX: Z47.1 Aftercare following joint replacement surgery (principal); I69.354 Hemiplegia and hemiparesis following cerebral infarction affecting left non-dominant side; M19.012 Primary osteoarthritis, left shoulder; M19.011 Primary osteoarthritis, right shoulder; Z88.5 Allergy status to narcotic agent; Z96.651 Presence of right artificial knee joint

== ENCOUNTER → 2017-08-27 | Outpatient (CLI) | payer MEDICARE, OTHER ==
--- NOTE | 2017-08-27 10:43 | RAD ---
EXAM DESCRIPTION: Knee,Right Complete CLINICAL HISTORY: 87 years, Male, OSTEOARTHRITIS OF KNEE COMPARISON: May 01, 2017 TECHNIQUE: Four views of the right knee FINDINGS: The bony tibia and fibula and distal femur appears mildly osteopenic. A total knee replacement in satisfactory position is evident with good apposition to the underlying bony matrix. A lucent patellar articular surface is noted. No fracture or deformity or lucency to suggest the possibility of loosening of the prosthesis is seen. Very little change from operative studies obtained in April 2017 noted. IMPRESSION: 1. Satisfactory right total knee replacement with stable alignment and position of prosthetic components and no evidence of loosening. Electronically signed by: Andre Soni MD 08/27/2017 10:42 AM [facility]
== END | disposition home or self-care (01) ==
LOC: RAD 07:58
PROVIDERS: ATTEND Orthopaedic Surgery
DX: M17.11 Unilateral primary osteoarthritis, right knee (principal)

== ENCOUNTER → 2017-09-18 | Outpatient (CLI) | payer MEDICARE, OTHER | LOC: GMAM 10:26 | PROVIDERS: ATTEND Family Medicine | DX: M25.561 Pain in right knee (principal) ==

== ENCOUNTER → 2018-02-22 | Outpatient (CLI) | payer MEDICARE, OTHER | LOC: GMAJS 11:47 | PROVIDERS: ATTEND Physician Assistant | DX: R30.0 Dysuria (principal) ==

== ENCOUNTER → 2018-06-08 | Outpatient (CLI) | payer MEDICARE, OTHER | LOC: GMAM 11:15 | PROVIDERS: ATTEND Family Medicine | DX: Z12.5 Encounter for screening for malignant neoplasm of prostate (principal) ==

== ENCOUNTER → 2018-10-15 | Outpatient (CLI) | payer MEDICARE, OTHER ==
--- NOTE | 2018-10-17 14:04 | RAD ---
EXAM DESCRIPTION: Pelvis: CR/DR/XR CLINICAL HISTORY: PAIN IN RIGHT HIP COMPARISON: Radiographs of the right knee on this visit. Pelvis radiograph 01/15/2017 TECHNIQUE: One view FINDINGS: No fracture dislocation. Bone density decreased. Hypertrophy of the superior lateral acetabula with joint space is maintained. No abnormal radiodense objects in the soft tissues or joint spaces. Enthesophytes. Bilateral SI joint arthrosis. IMPRESSION: Decreased bone density. 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 No acute bony abnormality. Stable since December 2016. Electronically signed by: Jaden Mckenzie MD 10/17/2018 2:01 PM [facility]
--- NOTE | 2018-10-17 14:08 | RAD ---
EXAM DESCRIPTION: Knee,Right Complete: CR/DR/XR. CLINICAL HISTORY: 88 years MaleRIGHT PAIN COMPARISON: Standing right knee radiographs 08/27/2017. Pelvis radiograph on this visit. TECHNIQUE: 4 views right knee. Standing. FINDINGS: Right total knee arthroplasty. Narrowing in the medial compartment is stable. Overall bone density is decreased. Bone abutting the components is unremarkable. No fractures. No abnormal radiodense objects in the soft tissues or joint spaces. IMPRESSION: Right total knee arthroplasty images standing. Slight narrowing of the medial compartment compared to the lateral compartment but stable since the prior study. No hardware complications. No acute bony or joint margin abnormalities. Electronically signed by: Jaden Mckenzie MD 10/17/2018 2:04 PM [facility]
== END ==
LOC: RAD 10:22
PROVIDERS: ATTEND Orthopaedic Surgery
DX: M25.561 Pain in right knee (principal); M25.551 Pain in right hip; Z96.651 Presence of right artificial knee joint

== ENCOUNTER → 2020-05-28 | Outpatient (CLI) | payer MEDICARE, OTHER ==
--- NOTE | 2020-05-28 10:43 | RAD ---
EXAM DESCRIPTION: Hand,Right 3 Views CLINICAL HISTORY: 89 years Male, PAIN IN RIGHT HAND COMPARISON: None. TECHNIQUE: 3 view radiograph of the right hand. IMPRESSION: No acute displaced fracture. No dislocation. Severe osteoarthrosis of the interphalangeal joints and carpal bones. Greatest in the carpal bones at the first carpometacarpal joint. Pattern of findings most consistent with osteoarthritis. Neutral ulnar variance. No soft tissue defect or radiopaque foreign body. Electronically signed by: Garth Win MD 05/28/2020 10:41 AM CDT
== END ==
LOC: RAD 08:31
PROVIDERS: ATTEND Orthopaedic Surgery
DX: M19.041 Primary osteoarthritis, right hand (principal)

== ENCOUNTER → 2020-06-18 | Outpatient (CLI) | payer MEDICARE, OTHER | LOC: LAB.O 09:02 | PROVIDERS: ATTEND Orthopaedic Surgery | DX: Z01.818 Encounter for other preprocedural examination (principal) ==

== ENCOUNTER 2020-07-04 05:31 | Day surgery (SDC) | payer MEDICARE, OTHER ==
[2020-07-04] MEDS ORDERED: SODIUM CHL 0.9% 100ML MINI-BAG 100 ML IVPB ONE (06:43)
[2020-07-04] MEDS ORDERED: LACTATED RINGERS 1,000 ML ONE (06:43)
[2020-07-04] MEDS ORDERED: ceFAZolin SODIUM 1 GM VIAL ONE (06:44)
[2020-07-04] MEDS ORDERED: diphenhydrAMINE HCL 50 MG/ML VIAL ONE (07:00)
[2020-07-04] MEDS ORDERED: PROPOFOL 200 MG/20 ML VIAL IV ONE (07:00)
[2020-07-04] MEDS ORDERED: BUPIVACAINE 0.25% INJ 30 ML VIAL INJ ONE (07:00)
[2020-07-04] MEDS ORDERED: LIDOCAINE 1% 10 ML VIAL INJ ONE (07:00)
[2020-07-04] MEDS: ceFAZolin SODIUM 1 GM VIAL ONE ×2 (08:05→08:16)
[2020-07-04] MEDS: VANCOMYCIN HCL INJ 1,000 MG VIAL IVPB ONE ×2 (08:06→08:16)
--- NOTE | 2020-07-04 09:06 | OP ---
DATE OF PROCEDURE: 07/03/20 PREOPERATIVE DIAGNOSIS: 1. Right carpal tunnel syndrome. POSTOPERATIVE DIAGNOSIS: 1. Right carpal tunnel syndrome. PROCEDURE: 1. Right carpal tunnel release. SURGEON: Santhosh Tellez MD. REFRIGERATOR CAR ICER: Jaden Bledsoe CST, SA-C. ANESTHESIA: Local with sedation. COMPLICATIONS: None. FINDINGS: 1. Thickening of the transverse carpal ligament. 2. Narrowing of the median nerve across the carpal tunnel. 3. Atrophy of the thenar eminence. INDICATION: Mr. Paz has a history of carpal tunnel syndrome and has requested operative intervention. After discussing the risks, benefits and alternatives to that, the patient has given informed consent for carpal tunnel release. PROCEDURE: The patient was brought to the Operating Room and placed in the supine position. Sedation was administered and local anesthetic was injected into the operative area under sterile conditions. After the injection of anesthetic, the arm was sterilely prepped and draped. A longitudinal incision was made directly overlying the transverse carpal ligament and blunt dissection was carried down to the ligament. The transverse carpal ligament was sharply transected along its length and a [place] elevator was used to ensure complete release of the ligament. Once release had been confirmed, the wound was thoroughly irrigated and the wound was closed with Nylon suture. A sterile dressing was placed and the patient was taken to the Day Surgery Unit. POSTOPERATIVE PLAN: The patient has been encouraged to do range of motion of the digits and will followup with us in two days. #[id number] [facility]
[2020-07-04 09:15] VITALS: BP 120/66; TEMP 97; O2SAT 98
== END 2020-07-04 09:10 | disposition home or self-care (01) ==
LOC: AMB 05:31
PROVIDERS: ATTEND Orthopaedic Surgery
DX: G56.01 Carpal tunnel syndrome, right upper limb (principal); K21.9 Gastro-esophageal reflux disease without esophagitis; Z88.5 Allergy status to narcotic agent; Z79.82 Long term (current) use of aspirin; Z79.899 Other long term (current) drug therapy; Z86.73 Personal history of transient ischemic attack (TIA), and cerebral infarction without residual deficits
CPT/HCPCS: 01810; 64721; 80307; J0690; J1200; J3370; J3490; J7050; J7120